=== PATIENT | female | born 1950 | race Caucasian/White ===

== ENCOUNTER 2024-11-17 10:48 | Emergency (ER) | payer OTHER ==
[~2024-11-17] VITALS: Ht 160 cm; Wt 102.5 kg
[2024-11-17 11:28] VITALS: BP 140/76; PULSE 80; RESP 18; TEMP 98.2; O2SAT 98
[2024-11-17] MEDS ORDERED: AUG875T PO (11:43)
--- NOTE | 2024-11-17 11:44 | ED.PDOC ---
History of Present Illness(SKN HPI Comments Presents to the clinic for dog bite to the right hand. Patient states that she was trying to put her granddaughter's dog in a cage when it bit her on the hand. Patient has a small skin tear 1 cm in length and the 5th digit. Patient has a another lack approximately a 3 cm below the thumb. Bleeding controlled Chief Complaint: Animal Bite Time Seen by MD: 11:16 Allergies: Uncoded Allergies: BETA SERUM (Allergy, Unknown, 11/17/24) MILK (Allergy, Unknown, 11/17/24) Home Meds Active Scripts Amoxicillin & Pot Clavulanate (AUGMENTIN TABLET) 875 Mg Tb, 875 MG PO BID for 10 Days, #20 TAB 0 Refills Prov:KEVIN NELSON [facility] 11/17/24 Mode of Arrival: Wheelchair Physical Exam General Appearance: No Apparent Distress, Normal HEENT: Normal ENT Inspection, Pharynx Normal, TMs Normal Neck: Full Range of Motion, Non-Tender, Normal, Normal Inspection Respiratory: Chest Non-Tender, Lungs Clear, No Accessory Muscle Use, No Respiratory Distress, Normal Breath Sounds Cardiovascular: No Edema, No JVD, No Murmur, No Gallop, Normal Peripheral Pulses, Regular Rate/Rhythm Breast Exam: Deferred Gastrointestinal: No Organomegaly, Non Tender, No Pulsatile Mass, Normal Bowel Sounds, Soft Genitalia: Deferred Pelvic: Deferred Rectal: Deferred Extremities: No calf tenderness, Normal capillary refill, Normal inspection, Normal range of motion, Non-tender, No pedal edema Musculoskeletal : Apperance: Normal Neurologic: Alert, 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 Was a procedure done?: No Laceration Repair : Length 1cm 1.5cm Laceration Repair Prep: Saline Laceration Repair: Skin (steri strips used - 4 total, wound left open to allow for drainage) Informed consent obtained: Yes Risks, benefits, and alternati: Yes Differential Diagnosis (INTG) Differential Diagnosis: Cellulitis, Laceration Differential Diagnosis: Other Differential Diagnosis: Abrasion, Lacerations Differential Diagnosis: Laceration X-Ray, Labs, Meds, VS Vital Signs Date Time Temp Pulse Resp B/P (MAP) Pulse Ox O2 Delivery O2 Flow Rate FiO2 11/17/24 11:28 98.2 80 18 140/76 (97) 98 98.2 11/17/24 11:28 80 18 98 Room Air 11/17/24 11:03 98.0 52 18 145/47 (79) 97 X-Ray, Labs, Meds, VS Comment Patient and advised to monitor for signs of infection such as purulent drainage, increased redness increased inflammation. Patient offered x-ray of bright hand. Patient politely declined On re-evaluation patient has symptomatic improvement. Patient is stable for discharge at this time. All test results and diagnostic imaging have been interpreted. All diagnostic findings, discharge care, and education instruction provided to the patient. Follow-up with PCP in 2-3 days Patient verbalized understanding, discharge instructions and agrees to treatment plan Vital signs are stable Patient is ambulatory Patient advised of which symptoms necessitate a return visit to the emergency room. Patient to return emergency room for any new worsening symptoms. Patient is aware that the purpose of this visit is for an acute medical emergency requiring emergent stabilization. Chronic conditions, including malignancies have not been ruled out. Patient is instructed to follow up with PCP as directed for continued care and workup. If unable to arrange follow up, patient is to return to the emergency room for reassessment. Patient was given verbal and written discharge instructions and acknowledges understanding Time of 1ST Reevaluation: 11:41 Reevaluation 1ST: Improved Patient Education/Counseling: Diagnosis, Treatment, Prognosis Family Education/Counseling: Diagnosis, Treatment, Prognosis Departure 1 Departure Time of Disposition: 12:05 Impression: Primary Impression: Dog bite of hand Qualified Codes: S61.451A - Open bite of right hand, initial encounter; W54.0XXA - Bitten by dog, initial encounter Disposition: HOME / SELF CARE / HOMELESS Condition: Stable e-Prescriptions Amoxicillin & Pot Clavulanate (AUGMENTIN TABLET) 875 Mg Tb 875 MG PO BID for 10 Days, #20 TAB 0 Refills Prov: KEVIN NELSON [employer] 11/17/24 Discharged With: Self, Spouse Critical Care Note Critical Care Time?: No Stability Stability form required: No Heart Score Heart Score: Heart Score Response (Comments) Value History N/A 0 EKG N/A 0 Age N/A 0 Risk Factors N/A 0 Troponin N/A 0 Total 0 KEVNI NELSON [facility] Nov 17, 2024 11:44
[2024-11-17] MEDS: TETANUS-DIPTH-ACEL PERTUSSIS 0.5ML SYR Tdap IM ONE (12:05)
== END 2024-11-17 12:16 | disposition home or self-care (01) ==
LOC: ER 10:48
DX: S61.011A Laceration without foreign body of right thumb without damage to nail, initial encounter (principal); Z88.8 Allergy status to other drugs, medicaments and biological substances; W54.0XXA Bitten by dog, initial encounter; Y93.89 Activity, other specified; Y92.89 Other specified places as the place of occurrence of the external cause; Y99.8 Other external cause status
CPT/HCPCS: 12001; 90471; 90715